=== PATIENT | female | born 1960 | race Caucasian/White ===

== ENCOUNTER → 2019-10-02 13:24 | Outpatient (CLI) | payer OTHER, SELFPAY ==
--- NOTE | ~2019-10-02 | MM_ITS ---
EXAMINATION: MM screening zohaib BI w shorty HISTORY: Screening mammogram TECHNIQUE: Craniocaudal and mediolateral oblique 3-D tomosynthesis images were obtained and synthetic 2-D images were generated. CAD analysis was submitted and interpreted. COMPARISON: No prior mammogram is available for comparison at this institution. BREAST PARENCHYMAL COMPOSITION: The breasts are heterogeneously dense, which may obscure small masses . FINDINGS: There is no evidence of suspicious mass, calcification, or architectural distortion to sugg est malignancy in either breast. There has been no suspicious interval change. IMPRESSION: 1. No mammographic evidence of malignancy. 2. Recommend routine screening mammography in one year. BI-RADS Category 1: Negative Reviewed, dictated and finalized at location A. WRAPPER MACHINE OPERATOR
--- NOTE | ~2019-10-02 | XR_ITS ---
EXAMINATION: XR wrist LT min 3V DATE: 10/02/2019 13:59 INDICATION: Increasing size of a soft mass at the ulnar side of the left wrist. TECHNIQUE: Posteroanterior, ulnar deviation, oblique, and lateral views of the left wrist were obtain ed. COMPARISON: none FINDINGS: Alignment is normal. No fracture. Joint spaces appear relatively preserved. No cortical erosions or p eriosteal reaction. On the ulnar deviated view there appears to be in mild bulge at the skin surface ulnar to the tip of the ulnar styloid process. No evident calcific matrix. IMPRESSION: Nonspecific mild bulge along the skin surface near the ulnar styloid process with the wrist in ulnar deviation with no underlying osseous abnormality. Could consider either MRI or ultrasound for further evaluation. Reviewed, dictated and finalized at location A. FLOORPERSON IMPRESSION: Nonspecific mild bulge along the skin surface near the ulnar styloid process wi th the wrist in ulnar deviation with no underlying osseous abnormality. Could c onsider either MRI or ultrasound for further evaluation.
== END ==
PROVIDERS: PCP Registered Nurse; Visit Provider Registered Nurse
DX: Z12.31 Encounter for screening mammogram for malignant neoplasm of breast (principal); M25.832 Other specified joint disorders, left wrist
CPT/HCPCS: 73110; 77063; 77067

== ENCOUNTER 2023-02-18 07:56 | Outpatient (CLI) | payer OTHER, SELFPAY ==
--- NOTE | ~2023-02-18 | US_ITS ---
EXAMINATION: US right upper quadrant DATE: 02/18/2023 08:19 INDICATION: Elevated liver enzymes TECHNIQUE: Multiple grayscale and Doppler ultrasound images of the abdomen were obtained. COMPARISON: None available FINDINGS: Bowel gas obscures visualization of the pancreas. The visualized portions of the pancreas a re unremarkable. The liver demonstrates increased echogenicity, heterogenous echotexture, and decreas ed through transmission. No surface nodularity. Normal hepatopetal flow in the main portal vein. The gallbladder is normal with no abnormal wall thickening, pericholecystic fluid or stones. The mildly d ilated common bile duct measures 7 mm. There was no sonographic De La Rosa sign. IMPRESSION: 1. Diffuse hepatic steatosis. 2. Mild dilation of the common bile duct of unclear etiology. Reviewed, dictated and finalized at location B.
== END 2023-02-18 07:57 ==
LOC: MICIMG 07:58
PROVIDERS: PCP Registered Nurse; Visit Provider Registered Nurse
DX: R74.8 Abnormal levels of other serum enzymes (principal); K76.0 Fatty (change of) liver, not elsewhere classified; K82.8 Other specified diseases of gallbladder
CPT/HCPCS: 76705

== ENCOUNTER 2023-03-10 16:40 | Outpatient (CLI) | payer OTHER, SELFPAY ==
[2023-03-10 17:34] LABS: Basophils Absolute Auto 0.1 K/mm3 (0.0-0.1); Basophils Percent Auto 2.6 % (0.2-1.2); Eosinophils Absolute Auto 0.1 K/mm3 (0-0.3); Hematocrit 31.1 % (37.0-47.0); Hemoglobin 10.9 g/dL (12.0-15.0); Immature Granulocyte Absolute 0.01 K/mm3 (0.00-0.031); Immature Granulocyte Percent A 0.2 % (0-0.5); Immature Platelet Fraction Pct 10.8 % (0.9-11.2); Lymphocytes Absolute Auto 1.07 K/mm3 (0.9-3.2); Lymphocytes Percent Auto 24.9 % (18.3-44.2); Mean Corpuscular Volume 102.6 fl (80-100); Mean Platelet Volume 11.4 fl (7.4-10.4); Monocytes Absolute Auto 0.6 K/mm3 (0.1-0.6); Monocytes Percent Auto 14.4 % (2.6-8.5); Neutrophils Absolute Auto 2.4 K/mm3 (1.3-6.7); Neutrophils Percent Auto 54.9 % (45.5-73.1); Platelet Count Result 89 k/mm3 (150-375); Red Blood Count 3.03 M/mm3 (4.2-5.4); Red Cell Distribution Width 12.7 % (11.5-14.5); White Blood Count 4.3 K/mm3 (4.5-10.0)
[2023-03-10 17:45] LABS: Alanine Aminotransferase 28 U/L (6-35); Albumin Level 5.1 g/dL (3.5-5.1); Alkaline Phosphatase 110 U/L (38-126); Anion Gap 15 mmol/L (8-16); Aspartate Amino Transferase 134 U/L (14-36); Bilirubin,Total 0.9 mg/dL (0.2-1.3); Blood Urea Nitrogen 6 mg/dL (7-17); Calcium 9.2 mg/dL (8.4-10.2); Carbon Dioxide 21 mmol/L (22-30); Chloride 93 mmol/L (98-107); Estimated Glomerular Filt Rate > 60; Glucose 90 mg/dL (65-110); Potassium 3.5 mmol/L (3.4-5.0); Sodium 129 mmol/L (137-145)
[2023-03-10 17:51] LABS: NT Pro B Type Natriuretic Pept 128 pg/mL (19.9-100)
[2023-03-10 17:54] LABS: D Dimer 1.79 ug/mL (<0.48)
[2023-03-10 17:57] LABS: Large Platelets Present; Platelet Estimate Decreased (Adequate); Schistocytes None Seen (NORMAL)
== END 2023-03-10 16:41 | disposition home or self-care (01) ==
PROVIDERS: PCP Registered Nurse; Visit Provider Student in an Organized Health Care Education/Training Program
DX: R06.02 Shortness of breath (principal)
CPT/HCPCS: 36415; 80053; 83880; 85025; 85055; 85380

== ENCOUNTER 2023-03-29 07:44 | Observation (INO) | payer OTHER, SELFPAY ==
[2023-03-29] VITALS (28 sets, daily range): BP systolic 117–137; BP diastolic 67–94; PULSE 73–96; RESP 10–22; TEMP 36.4–36.7; O2SAT 94–100; BMI 18.8
--- NOTE | ~2023-03-29 | US_ITS ---
EXAMINATION: US venous doppler [facility] DATE: 03/29/2023 16:52 INDICATION: Shortness of breath TECHNIQUE: Grayscale ultrasound images without and with compression and Doppler ultrasound images of the bilateral lower extremity veins were obtained. COMPARISON: None. FINDINGS: The visualized portions of right common femoral vein, profunda (deep) femoral vein, femoral vein, pop liteal vein, posterior tibial veins, peroneal veins, gastrocnemius vein and greater saphenous vein ou tflow are patent. The visualized portions of left common femoral vein, profunda femoral vein, femoral vein, popliteal v ein, posterior tibial veins, peroneal veins, gastrocnemius vein and greater saphenous vein outflow ar e patent. IMPRESSION: 1. No deep venous thrombosis in either lower limb. Reviewed, dictated and finalized at location A.
--- NOTE | ~2023-03-29 | XR_ITS ---
EXAMINATION: XR chest 2V DATE: 03/29/2023 08:48 INDICATION: Shortness of breath. TECHNIQUE: Frontal and lateral views of the chest were obtained. COMPARISON: None. FINDINGS: There is mild scarring at the lung apices. A calcified left lung nodule and calcified left hilar and mediastinal lymph nodes are consistent with old granulomatous disease. No pleural effusion or pneumothorax. The heart size is normal. IMPRESSION: 1. Mild scarring at the lung apices. Reviewed, dictated and finalized at location A.
--- NOTE | ~2023-03-29 | CT_ITS ---
EXAMINATION: CTA chest PE protocol DATE: 03/30/2023 08:05 INDICATION: Shortness of breath. TECHNIQUE: Computed tomography angiography (CTA) of the chest was performed with 100 mL Omnipaque-350 intravenous contrast timed to evaluate the pulmonary arteries. Coronal maximum intensity projection 3D-reconstructions were created by the technologist. Automated exposure control and iterative reconst ruction technique were employed. The dose-length product was 200.07 mGy-cm. COMPARISON: Chest 2 views 03/29/2023 FINDINGS: There is mild emphysema. There is mild scarring at the lung apices. There are groundglass o pacities in anterior segment left upper lobe. There is mild atelectasis bilaterally. A calcified left lung nodule and calcified left hilar and mediastinal lymph nodes are consistent with old granulomato us disease. The heart size is normal. No pericardial effusion. Aortic atherosclerosis is noted. There is noncalcified left hilar lymphadenopathy measuring up to 16 x 14 mm. Calcifications in the spleen are consistent with old granulomatous disease. There is diffuse hepatic steatosis. There is mild thor acic spondylosis. IMPRESSION: 1. No pulmonary embolus. 2. Groundglass opacities in anterior segment left upper lobe, consistent with mild pneumonia. 3. Mild left hilar lymphadenopathy, which may be reactive. Consider chest CT with contrast in 3 month s to exclude malignancy. 4. Mild emphysema. Reviewed, dictated and finalized at location A. IMPRESSION: 1. No pulmonary embolus. 2. Groundglass opacities in anterior segment left upper lobe, consistent with m ild pneumonia. 3. Mild left hilar lymphadenopathy, which may be reactive. Consider chest CT wi th contrast in 3 months to exclude malignancy. 4. Mild emphysema.
--- NOTE | 2023-03-29 07:52 | ECG_ITS ---
Measurements Intervals [place] Rate: 80 P: 76 TX: 205 QRS: 38 QRSD: 88 T: 70 QT: 389 QTc: 450 Interpretive Statements SINUS RHYTHM ANTEROSEPTAL MYOCARDIAL INFARCTION , OF INDETERMINATE AGE [40+ ms Q WAVE IN V1-V4] BASELINE ARTIFACT LIMITS INTERPRETATION NO PREVIOUS ECG AVAILABLE FOR COMPARISON Electronically Signed On 03-29-2023 11:22:48 CDT by Ang Dahl M.D.
[2023-03-29 08:13] LABS: Basophils Absolute Auto 0.1 K/mm3 (0.0-0.1); Basophils Percent Auto 1.9 % (0.2-1.2); Eosinophils Absolute Auto 0.2 K/mm3 (0-0.3); Eosinophils Percent Auto 5.6 % (0-4.4); Hematocrit 29.4 % (37.0-47.0); Hemoglobin 10.5 g/dL (12.0-15.0); Immature Granulocyte Absolute 0.02 K/mm3 (0.00-0.031); Immature Granulocyte Percent A 0.6 % (0-0.5); Immature Platelet Fraction Pct 12.6 % (0.9-11.2); Lymphocytes Absolute Auto 0.93 K/mm3 (0.9-3.2); Lymphocytes Percent Auto 28.9 % (18.3-44.2); Mean Corpuscular HGB Conc 35.7 g/dl (32-36); Mean Corpuscular Hemoglobin 36.7 pg (26-34); Mean Corpuscular Volume 102.8 fl (80-100); Mean Platelet Volume 10.3 fl (7.4-10.4); Monocytes Absolute Auto 0.5 K/mm3 (0.1-0.6); Monocytes Percent Auto 14.6 % (2.6-8.5); Neutrophils Absolute Auto 1.6 K/mm3 (1.3-6.7); Neutrophils Percent Auto 48.4 % (45.5-73.1); Platelet Count Result 92 k/mm3 (150-375); Red Blood Count 2.86 M/mm3 (4.2-5.4); Red Cell Distribution Width 11.9 % (11.5-14.5); White Blood Count 3.2 K/mm3 (4.5-10.0)
[2023-03-29 08:23] LABS: Alanine Aminotransferase 66 U/L (6-35); Albumin Level 4.9 g/dL (3.5-5.1); Alkaline Phosphatase 100 U/L (38-126); Anion Gap 14 mmol/L (8-16); Aspartate Amino Transferase 205 U/L (14-36); Bilirubin,Total 0.9 mg/dL (0.2-1.3); Blood Urea Nitrogen 6 mg/dL (7-17); Calcium 9.6 mg/dL (8.4-10.2); Carbon Dioxide 19 mmol/L (22-30); Chloride 87 mmol/L (98-107); Estimated CRCL calculation 63 ml/min; Estimated Glomerular Filt Rate > 60; Glucose 83 mg/dL (65-110); Potassium 3.6 mmol/L (3.4-5.0); Sodium 120 mmol/L (137-145)
[2023-03-29 08:58] LABS: D Dimer 1.87 ug/mL (<0.48)
--- NOTE | 2023-03-29 09:11 | PC.NURSE ---
Pt reports ETOH use, vodka, some time this morning prior to arrival
[2023-03-29 09:35] LABS: Ethanol 323 mg/dL (<10)
--- NOTE | 2023-03-29 10:19 | ED.GENADULT ---
HPI - General Adult General Chief complaint: Recheck/Abnormal Lab/Rx Stated complaint: abnormal labs, leg swelling Time Seen by Provider: 03/29/23 09:46 Source: patient and family Mode of arrival: ambulatory Limitations: no limitations History of Present Illness HPI narrative: 62 years old white female came to the emergency room with her daughter with funny breathing and swelling left leg. The daughter is the 1 taking care of the patient, patient is alcoholic, drinks daily, the daughter is telling me I cannot watch my mom dying in front of my eyes without doing anything. Patient declined to be treated for alcoholism and would like to continue drinking. She denies any headache, chest pain, shortness of breath, back pain. Patient does not eat enough or drink fluids enough. She denies any fever or chills or nausea or vomiting. Related Data Allergies Allergy/AdvReac Type Severity Reaction Status Date / Time azithromycin Allergy Unknown Verified 03/29/23 08:46 Review of Systems Review of Systems: All systems reviewed & are unremarkable except as noted in HPI and below Exam Narrative: General appearance: Well-developed, malnourished Skin: Normal color, scattered ecchymosis Head: Normocephalic, nontraumatic Eyes: Clear conjunctiva ENT: Oropharynx normal, ears normal, nose normal Neck: Supple, nontender Chest and respiratory: Airway patent, no respiratory distress, no accessory muscle use Heart: Regular rate/rhythm Abdomen: Soft, nontender, no organomegaly, quiet bowel sounds Vascular: Normal peripheral pulses, normal capillary refill. Musculoskeletal: Normal range of motion, nontender back, no leg swelling or tenderness Neurologic: Alert and oriented ?3, SPLITTER HEAD is normal as tested, no gross motor deficit Course Reevaluation(s) Reevaluation #1: Currently patient is asymptomatic and would like to go home Date: 03/29/23 Time: 11:33 Consultations Consultation #1: Dr. lay Date: 03/29/23 Time: 11:04 Vital Signs Vital signs: Vital Signs Temperature 36.4 C 03/29/23 07:45 Pulse Rate 82 03/29/23 07:45 Respiratory Rate 18 03/29/23 07:45 Blood Pressure 118/84 03/29/23 07:45 Pulse Oximetry 95 03/29/23 07:45 Oxygen Delivery Room Air 03/29/23 07:45 Temperature 36.4 C 03/29/23 07:45 Pulse Rate 75 03/29/23 10:40 Respiratory Rate 12 03/29/23 10:40 Blood Pressure 129/88 03/29/23 10:40 Pulse Oximetry 99 03/29/23 10:40 Oxygen Delivery Room Air 03/29/23 08:58 Medical Decision Making MDM Narrative Medical decision making narrative: Patient brought to the emergency room by her daughter who is taking care of her at home because not eating, not drinking, and losing weight over the last few weeks to months. Patient is alcoholic, drinks daily, declined to be referred to detox or stop drinking. Examination showed frail patient, awake, alert and oriented x4. Work-up today includes CBC, CMP, lipase, alcohol level, PT PTT, EKG showed leukopenia of 3.2 which high likely secondary to alcoholism, RBCs of 2.8, sodium of 120 compared to 129 on March 10. High likely secondary to hypovolemia hyponatremic or secondary to overhydration with alcohol. Patient received 800 of normal saline IV, banana bag at 100 cc/h, nephrology consult. Patient was not happy to be admitted, eventually agreed. Differential Diagnosis Differential Diagnosis: Alcoholism, dehydration, electrolyte imbalance, deep vein thrombosis, malnourished and failure to thrive Medical Records Medical records reviewed: Yes I reviewed the external patient's medical records. Vital Signs Vital Signs: Vital Signs Temperature 36.4 C 03/29/23 07:45 Pu
[2023-03-29] MEDS: SODIUM CHLORIDE 0.9% IV 1,000 ML 999 ML IV CONT (10:38)
[2023-03-29] MEDS: NICOTINE (*PBKC) 21 MG PATCH 1 PATCH TRANSDERM (10:39)
--- NOTE | 2023-03-29 11:26 | PC.NURSE ---
pt states that their last alcohol drink was at 0700 03/29
[2023-03-29 12:20] LABS: Sodium 127 mmol/L (137-145)
--- NOTE | 2023-03-29 12:46 | PM.CNNEP ---
Assessment and Plan Assessment and plan (1) Hyponatremia: Code(s): E87.1 - Hypo-osmolality and hyponatremia Status: Acute Assessment and Plan: acute on chronic baseline sodium runs ~ 129mmol/L sodium doing better with IVF hydration (arguing in favor or volume depletion) for completeness, will check urine electrolytes, TSH, cortisol, and SPEP/UPEP goal of correction is 6 - 8meq/L in 24 hours follow trend of repeat sodium levels (2) Alcoholism: Code(s): F10.20 - Alcohol dependence, uncomplicated Status: Acute Assessment and Plan: on [facility] protocol IV thiamine and oral folic acid I will continue to follow the patient with you while she remains hospitalized to make further recommendations based on her hospital course. Thank you for allowing me to participate in the care of this patient. History of Present Illness Reason for Consult Consult date: 03/29/23 Reason for consult: hyponatremia Chief Complaint Chief complaint: Alcoholic, Hyponatremia, Malnourished History of Present Illness Narrative: The patient is a 62-year-old female with a past medical history as outlined below who was brought in that the behest of her daughter due to her concerns for poor oral intake and alcohol abuse. The patient lives with her daughter and her daughter brought into the hospital due to her significant Cerner about her poor oral intake and her ongoing alcohol use. I am unclear if there any other specific concerns other than this that led to her presentation to the ER. The patient barely drinks 2-3 vodkas a day and has done so for many years. She reports no acute complaints or issues at this time is unclear why her daughter brought her to the emergency room in the 1st place. Workup and evaluation in the emergency room demonstrated the patient to be hemodynamically stable and in no apparent distress. Routine blood test did demonstrate her sodium level to be low but this apparently is a chronic issue. Her baseline sodium level runs around 129 millimoles per L and her labs in the emergency room showed a sodium of 120. However, with IV fluid it is, her sodium level is up to 127. as far as I am aware, she is not having neurological issues or problems despite this low sodium level as mentioned. Given her hyponatremia, the patient was subsequently admitted to the hospital for further evaluation and therapy. Renal consultation was requested due to her hyponatremia. As mentioned, the patient has known chronic hyponatremia at baseline with a sodium level that usually runs around 129 millimoles per L. based on her history, the assumption is that her hyponatremia is related to her significant alcohol use/ abuse and poor nutritional intake as well. She does apparently have a history of hypothyroidism and is unclear if she has active taking medications for this so if this is poorly controlled, this may be a contributing factor. As already mentioned, just with IV fluid resuscitation, her sodium level has improved arguing that volume depletion/dehydration is also playing a role as well. Currently, at the time my evaluation, she does not appear to be in acute distress. Review of Systems Review of Systems: As per HPI. [facility] Family History Family History Daughter Hyperthyroidism Sibling Hypothyroid Other Hypothyroid Mother Hypothyroid Pulmonary fibrosis Social History Social History Smoking status: Current every day smoker Tobacco type: cigarettes Alcohol intake: current Drinks per week: 14 Substance use: never Lack of Transportation: YES Lack of Food: Never True Current Housing: I Have Housing Concerned About Future Housing: No Difficulty Paying Gas/Electric Bills: No Difficulty Paying for Meds: No Currently Unemployed: No Education: Bachelor's Degree
--- NOTE | 2023-03-29 13:25 | ADMGEN ---
This patient, Billie Moreno, was admitted to [facility] Surg Room 305-02. Patient/family oriented to hospital policies and general routines including ID bracelet, bed and alarms, visiting hours, pain management, procedures, bathroom and other care routines, personal items, smoking policy, room service/diet, and visiting hours. Information on how to activate the Rapid Response Team has been discussed. Patient/Family are encouraged to report perceived risks to care and to ask questions if they do not understand what they are told or what they should do. Report from Halina in ER.
[2023-03-29 14:49] LABS: Appearance Urine Clear (Clear); Bilirubin Urine Negative (Negative); Blood Urine Negative (Negative); Color Urine Yellow (Yellow); Glucose Urine UA Negative (Negative); Ketones Urine Trace mg/dL (Negative); Leukocyte Esterase Ur Negative LEU/UL (Negative); Nitrate Urine Negative (Negative); Protein Urine Negative (Negative); Specific Grav Ur 1.003 (1.001-1.035); Urobilinogen Urine 0.2 mg/dL (<2.0); pH Urine 6.5 (5.0-9.0)
[2023-03-29 14:59] LABS: Add Urine Microscopic? NO
[2023-03-29 15:09] LABS: Creatinine Urine 10.9 mg/dL; Total Protein Urine Random 16 mg/dL; Ur Ttl Prot Creatinine Ratio 1.47 mg/mg (0-0.20)
[2023-03-29 15:19] LABS: Sodium Urine Random 25 meq/L
--- NOTE | 2023-03-29 15:22 | PC.NURSE ---
Called Dr. Valle at 1430 about pt from ER. This nurse asked the about the banana bag that is showing discontinued. told this nurse to let the infusion finish then disconnect.
--- NOTE | 2023-03-29 15:52 | PM.IMHP ---
H&P: HPI History of Present Illness Date/Time: 03/29/23 15:52 Chief Complaint: SOB Narrative: 62 years old white female came to the emergency room with her daughter with funny breathing and swelling left leg. Pt lives with her daughter and she was very worried about her not eating for days and drinking alcholol Pt states she drinks 2-3 vodkas a day. cxr today shows - ?Mild scarring at the lung apices. Sodium is 127 Pt states she has hypothyroidism but is missing her medications order TSH History is poor I will order CT PE to rule out PE and order venous dopplers to rule out DVT And cover with CIWA protocol while in the hospital. Review of Systems Review of Systems: SOB denies chest pain or palpitations Leg edema PMFSH Family History Family History Daughter Hyperthyroidism Sibling Hypothyroid Other Hypothyroid Mother Hypothyroid Pulmonary fibrosis Social History Social History Smoking status: Current every day smoker Tobacco type: cigarettes Alcohol intake: current Drinks per week: 14 Substance use: never Lack of Transportation: YES Lack of Food: Never True Current Housing: I Have Housing Concerned About Future Housing: No Difficulty Paying Gas/Electric Bills: No Difficulty Paying for Meds: No Currently Unemployed: No Education: Bachelor's Degree Difficulty w/ Childcare or Family Care: No Spiritual care concerns: No Meds Home Medications and Allergies Home Medications Medication Instructions Recorded Confirmed Type Zyrtec 1 tablet BYMOUTH DAILY 03/29/23 03/29/23 History levothyroxine 75 mcg tablet 75 mcg PO DAILY 03/29/23 03/29/23 History sertraline 25 mg tablet 25 mg PO DAILY 03/29/23 03/29/23 History Allergies Allergy/AdvReac Type Severity Reaction Status Date / Time azithromycin Allergy Diarrhea Verified 03/29/23 13:48 Vital Signs Vital Signs - 24 hr 03/29/23 07:45 03/29/23 08:58 03/29/23 09:03 Temperature 36.4 C Pulse Rate 82 80 Respiratory Rate 18 13 Blood Pressure 118/84 137/84 Pulse Oximetry 95 98 97 Oxygen Delivery Room Air Room Air 03/29/23 10:40 03/29/23 08:46 03/29/23 08:59 Temperature Pulse Rate 75 77 Respiratory Rate 12 14 13 Blood Pressure 129/88 133/94 H Pulse Oximetry 99 96 96 Oxygen Delivery 03/29/23 09:00 03/29/23 09:01 03/29/23 09:19 Temperature Pulse Rate 79 80 75 Respiratory Rate 17 12 Blood Pressure 137/84 Pulse Oximetry 99 97 97 Oxygen Delivery 03/29/23 09:31 03/29/23 09:46 03/29/23 09:47 Temperature Pulse Rate 83 76 80 Respiratory Rate 17 10 L 12 Blood Pressure 122/91 H Pulse Oximetry 96 97 95 Oxygen Delivery 03/29/23 10:04 03/29/23 10:15 03/29/23 10:31 Temperature Pulse Rate 78 95 81 Respiratory Rate 10 L 22 H 10 L Blood Pressure 129/88 Pulse Oximetry 94 97 96 Oxygen Delivery 03/29/23 10:32 03/29/23 10:45 03/29/23 11:02 Temperature Pulse Rate 83 78 82 Respiratory Rate 10 L 14 14 Blood Pressure Pulse Oximetry 96 98 96 Oxygen Delivery 03/29/23 11:25 03/29/23 11:26 03/29/23 11:31 Temperature Pulse Rate 80 77 78 Respiratory Rate 15 10 L 10 L Blood Pressure 136/84 117/76 Pulse Oximetry 98 98 98 Oxygen Delivery 03/29/23 11:39 03/29/23 11:51 03/29/23 12:05 Temperature Pulse Rate 75 76 78 Respiratory Rate 10 L 11 L 17 Blood Pressure Pulse Oximetry 98 97 100 Oxygen Delivery 03/29/23 12:17 03/29/23 12:30 03/29/23 14:00 Temperature 36.7 C Pulse Rate 80 85 73 Respiratory Rate 15 16 16 Blood Pressure 127/67 Pulse Oximetry 95 96 98 Oxygen Delivery Exam Narrative: General appearance: Well-developed, malnourished Skin: Normal color, scattered ecchymosis Head: Normocephalic, nontraumatic Eyes: Clear conjunctiva ENT: Oropharynx normal, ears normal, nose normal N
[2023-03-29 18:07] LABS: Sodium 128 mmol/L (137-145)
[2023-03-29 22:34] LABS: Sodium 127 mmol/L (137-145)
--- NOTE | 2023-03-30 | ECHO_ITS ---
Patient Info Name: Billie Moreno Age: 62 years : 1960 Gender: Female Ht: 64 in Wt: 109 lbs BSA: 1.49 m2 HR: 78 bpm BP: 124 / 72 mmHg Heart Rhythm: Sinus Rhythm Technical Quality: Fair Exam Date: 03/30/2023 9:27 AM Exam Location: [facility] Pulmonary Exam Room: [facility] Patient Status: Inpatient Admit Date: 03/29/2023 Staff Ordering Physician: Aislinn Valle MD Attending Provider: Aislinn Valle MD Referring Physician: Tori TATUM; Exam Type: CA echo doppler color flow Study Info Indications - ALCOHOLIC CARDIOMYOPATHY Complete two-dimensional, color flow and Doppler transthoracic echocardiogram is performed. Summary 1. Complete two-dimensional, color flow and Doppler transthoracic echocardiogram is performed. 2. Left ventricular chamber dimension is normal. 3. Left ventricular systolic function is normal, estimated at 65-70%. 4. The left ventricular diastolic function is grade I diastolic dysfunction. 5. Right ventricular systolic function is normal. 6. There is mild aortic valve regurgitation. Left Ventricle Left ventricular chamber dimension is normal. Left ventricular systolic function is normal, estimated at 65-70%. There is no increased left ventricular wall thickness. The left ventricular diastolic function is grade I diastolic dysfunction. Global longitudinal strain is normal at -20 %. Right Ventricle Right ventricular chamber dimension is normal. Right ventricular systolic function is normal. Left Atria Left atrial chamber dimension is normal. Right Atria Right atrial chamber dimension is normal. Atrial Septum Intact interatrial septum visualized by color flow imaging. Aortic Valve The aortic valve is not well visualized. There is no aortic valve stenosis. There is mild aortic valve regurgitation. Pulmonic Valve The pulmonic valve is not well visualized. Mitral Valve There is trace mitral valve regurgitation. Tricuspid Valve There is trace tricuspid valve regurgitation. Pericardium/Pleural There is no pericardial effusion. Inferior Vena Cava Normal inferior vena cava with >50% collapse upon inspiration consistent with normal right atrial pressure, 3 mmHg. Aorta The aortic root size at the sinus of Valsalva is normal. Left Ventricular Outflow Tract Name Value Normal LVOT 2D LVOT Diameter 2.0 cm LVOT Doppler LVOT Peak Gradient 6 mmHg LVOT Mean Gradient 3 mmHg LVOT VTI 22 cm LVOT VTI/AV VTI Ratio 0.9 LVOT Stroke Volume 69 ml LVOT CO 15.6 l/min LVOT CI 10.5 l/min/m2 Pulmonic Valve Name Value Normal PV Doppler PV Peak Gradient 3 mmHg Mitral Valve Name Value N
[2023-03-30 05:25] VITALS: BP 124/72; PULSE 84; RESP 14; TEMP 36.4; O2SAT 97
[2023-03-30] MEDS: ACETAMINOPHEN 500 MG TABLET 1000 MG PO (05:58)
[2023-03-30] MEDS: LEVOTHYROXINE SODIUM 75 MCG TABLET PO (05:58)
[2023-03-30 07:09] LABS: Anion Gap 12 mmol/L (8-16); Blood Urea Nitrogen 6 mg/dL (7-17); Calcium 9.1 mg/dL (8.4-10.2); Carbon Dioxide 21 mmol/L (22-30); Chloride 94 mmol/L (98-107); Estimated CRCL calculation 76 ml/min; Estimated Glomerular Filt Rate > 60; Glucose 85 mg/dL (65-110); Magnesium 1.3 mg/dL (1.6-2.3); Potassium 3.2 mmol/L (3.4-5.0); Sodium 127 mmol/L (137-145)
[2023-03-30] MEDS: FOLIC ACID 0.4 MG TABLET PO (08:12)
[2023-03-30 09:04] VITALS: O2SAT 97
[2023-03-30] MEDS: NICOTINE (*PBKC) 21 MG PATCH 1 PATCH TRANSDERM (13:05)
[2023-03-30 13:37] VITALS: BP 117/80; PULSE 95; RESP 16; TEMP 37; O2SAT 99
--- NOTE | 2023-03-30 14:27 | PM.IMPN ---
Progress Note: A&P Assessment and Plan (1) Alcoholism: Code(s): F10.20 - Alcohol dependence, uncomplicated Status: Acute Assessment and Plan: Pt to be placed on CIWA protocol Watch pt with librium and prn ativan Banana bag IV thiamine and oral folic acid (2) Acute hyponatremia: Code(s): E87.1 - Hypo-osmolality and hyponatremia Status: Acute Assessment and Plan: Watch sodium levels (3) At risk for malnutrition: Code(s): Z91.89 - Other specified personal risk factors, not elsewhere classified Status: Acute Assessment and Plan: Pt receiving banana bag IV thiamine and oral folic acid (4) SOB (shortness of breath): Code(s): R06.02 - Shortness of breath Status: Acute Assessment and Plan: SOB with leg edema CXR reviwed I will order echo to check or alcholic cadiomyopathy and CT pe protocol and venous doplers to rule out PE or DVT Plan Thrombocytopenia likely secondary to alcoholism Hypothyroidism Watch TSH Mild anemia watch hb levels Subjective Date/time seen: 03/30/23 14:27 Interval history: 62 years old white female came to the emergency room with her daughter with funny breathing and swelling left leg. Pt lives with her daughter and she was very worried about her not eating for days and drinking alcholol Pt states she drinks 2-3 vodkas a day. cxr today shows -??Mild scarring at the lung apices. Sodium is 127 Pt states she has hypothyroidism but is missing her medications order TSH History is poor CT PE to ruled out PE and order venous dopplers to ruled out DVT And cover with CIWA protocol while in the hospital. Await echo report Review of Systems Review of Systems: SOB denies chest pain or palpitations Leg edema Exam Narrative: General appearance: Well-developed, malnourished Skin: Normal color, scattered ecchymosis Head: Normocephalic, nontraumatic Eyes: Clear conjunctiva ENT: Oropharynx normal, ears normal, nose normal Neck: Supple, nontender Chest and respiratory: Airway patent, no respiratory distress, no accessory muscle use Heart: Regular rate/rhythm Abdomen: Soft, nontender, no organomegaly, quiet bowel sounds Vascular: Normal peripheral pulses, normal capillary refill. Musculoskeletal: Normal range of motion, nontender back, no leg swelling or tenderness Neurologic: Alert and oriented ?3, ICE HANDLER is normal as tested, no gross motor deficit Objective Data Vital Signs Vital Signs: Vital Signs - 24 hr 03/29/23 21:53 03/30/23 05:25 03/30/23 09:04 Temperature 36.6 C 36.4 C Pulse Rate 96 84 Respiratory Rate 16 14 Blood Pressure 132/71 124/72 Pulse Oximetry 96 97 97 Oxygen Delivery Room Air 03/30/23 08:00 03/30/23 13:37 Temperature 37.0 C Pulse Rate 95 Respiratory Rate 16 Blood Pressure 117/80 Pulse Oximetry 99 Oxygen Delivery Room Air Intake/Output Intake/Output: Intake & Output 03/27/23 03/28/23 03/29/23 03/30/23 23:59 23:59 23:59 23:59 Intake Total 2020 1110 Output Total 600 1200 Balance 1420 -90 Meds/Results Medications: Active Medications Generic Name Dose Route Start Last Admin Trade Name Freq PRN Reason Stop Dose Admin Chlordiazepoxide HCl 25 mg 03/29/23 16:16 Chlordiazepoxide (*Crx) 25 Mg Capsule PO Q8H PRN Anxiety Folic Acid 0.4 mg 03/30/23 09:00 03/30/23 08:12 Folic Acid 0.4 Mg Tablet PO 0.4 mg DAILY HOME Administration Levothyroxine Sodium 75 mcg 03/30/23 06:30 03/30/23 05:58 Levothyroxine Sodium 75 Mcg Tablet PO 75 mcg DAILY@0630 HOME Administration Lorazepam 0.5 mg 03/29/23 16:16 Lorazepam Inj (*Crx) 2
--- NOTE | 2023-03-30 14:35 | PM.PNNEP ---
Progress Note: A&P Assessment and Plan (1) Hyponatremia: Code(s): E87.1 - Hypo-osmolality and hyponatremia Status: Acute Assessment and Plan: acute on chronic baseline sodium runs ~ 129mmol/L sodium doing better with IVF hydration (arguing in favor of volume depletion) evaluation to date: urine electrolytes prerenal TSH and cortisol okay SPEP/UPEP pendng goal of correction is 6 - 8meq/L in 24 hours --this has been achieved follow trend of repeat sodium levels (2) Alcoholism: Code(s): F10.20 - Alcohol dependence, uncomplicated Status: Acute Assessment and Plan: on [facility] protocol IV thiamine and oral folic acid Will continue to follow. Subjective Date/time seen: 03/30/23 14:35 Interval history: Follow-up for acute on chronic hyponatremia, No apparent dsitress noted at the time of my visit; sodium is doing better with current interventions/therapy; no other issues/events overnight or earlier this morning. Exam Narrative: General: female in NAD Heart: normal S1 and S2; no rub Lungs: clear to auscultation Abdomen: soft, nontender, nondistended, positive bowel sounds Extremities: no cyanosis or clubbing; no edema Skin: warm and dry Objective Data Vital Signs Vital Signs: Vital Signs Temp Pulse Resp BP Pulse Ox O2 Del Method 03/30/23 13:37 98.6 F 95 16 117/80 99 03/30/23 08:00 Room Air 03/30/23 09:04 97 Room Air 03/30/23 05:25 97.6 F 84 14 124/72 97 03/29/23 21:53 97.8 F 96 16 132/71 96 Intake/Output Intake/Output: Intake & Output 03/27/23 03/28/23 03/29/23 03/30/23 23:59 23:59 23:59 23:59 Intake Total 2019 1350 Output Total 600 1650 Balance 1420 -300 Meds/Results Medications: Active Medications Generic Name Dose Route Start Last Admin Trade Name Freq PRN Reason Stop Dose Admin Chlordiazepoxide HCl 25 mg 03/29/23 16:16 Chlordiazepoxide (*Crx) 25 Mg Capsule PO Q8H PRN Anxiety Folic Acid 0.4 mg 03/30/23 09:00 03/30/23 08:12 Folic Acid 0.4 Mg Tablet PO 0.4 mg DAILY HOME Administration Levothyroxine Sodium 75 mcg 03/30/23 06:30 03/30/23 05:58 Levothyroxine Sodium 75 Mcg Tablet PO 75 mcg DAILY@0630 HOME Administration Lorazepam 0.5 mg 03/29/23 16:16 Lorazepam Inj (*Crx) 2 Mg/Ml Vial IV PUSH Q6H PRN Anxiety Nicotine 1 patch 03/30/23 10:50 03/30/23 13:05 Nicotine (*Pbkc) 21 Mg Patch TRANSDERM 1 patch QAM HOME Administration Ondansetron HCl 4 mg 03/29/23 11:24 Ondansetron Inj 4 Mg/2 Ml Vial IV PUSH Q4H PRN Nausea Perflutren Lipid Microsphere 0 ml 03/29/23 16:16 Perflutren Lipid Microspheres 1.5 Ml Vial Diluted To 10 Ml Total Volume IV PUSH 03/31/23 16:17 ONCE PRN adequate visualization Protocol Potassium Chloride 20 meq 03/31/23 09:00 Potassium Chloride 20 Meq Packet (For Liquid) PO DAILY [facility] Thiamine HCl 100 mg 03/31/23 09:00 Thiamine Hcl 100 Mg Tablet PO QAM [facility] Radiology Results: ITS Impressions Chest X-Ray 03/29/23 08:54 IMPRESSION: 1. Mild scarring at the lung apices. Venous Doppler Study 03/29/23 17:39 IMPRESSION: 1. No deep venous thrombosis in either lower limb. Chest CTA 03/30/23 08:08 IMPRESSION: 1. No pulmonary embolus. 2. Groundglass opacities in anterior segment left upper lobe, consistent with mild pneumonia. 3. Mild left hilar lymphadenopathy, which may be reactive. Consider chest CT with contrast in 3 months to exclude malignancy. 4. Mild emphysema. Labs Labs: Laboratory Tests 03/29/23 08:05 03/30/23 06:30 Sodium 127 L Potassium 3.2 L Chloride 94 L Carbon Dioxide 21 L Anion Gap 12 BUN 6 L Creatinine 0.50 L Estim Creat Clear Calc 76 Estimated GFR > 60 Glucose 85 Calcium 9.1 Magnesium 1.3 L
[2023-03-30 15:09] VITALS: BMI 18.8
[2023-03-30 16:41] LABS: Sodium 129 mmol/L (137-145)
[2023-03-30 16:42] LABS: Anion Gap 13 mmol/L (8-16); Blood Urea Nitrogen 9 mg/dL (7-17); Calcium 9.3 mg/dL (8.4-10.2); Carbon Dioxide 23 mmol/L (22-30); Chloride 93 mmol/L (98-107); Estimated CRCL calculation 76 ml/min; Estimated Glomerular Filt Rate > 60; Glucose 144 mg/dL (65-110)
--- NOTE | 2023-03-30 18:50 | PC.NURSE ---
If patient were to discharge tomorrow, daughter Lalita Moreno wants staff to notify Taylor Chin (sister) [phone] for any discharge needs/transportation. Lalita Moreno will be unavailable to take calls tomorrow.
[2023-03-30 21:43] VITALS: BP 133/86; PULSE 87; RESP 13; TEMP 37.2; O2SAT 98
[2023-03-31 05:35] VITALS: BP 141/84; PULSE 96; RESP 13; TEMP 37.1; O2SAT 98
[2023-03-31] MEDS: LEVOTHYROXINE SODIUM 75 MCG TABLET PO (05:48)
[2023-03-31 08:01] LABS: Albumin Level 4.6 g/dL (3.5-5.1); Anion Gap 6 mmol/L (8-16); Blood Urea Nitrogen 6 mg/dL (7-17); Calcium 9.3 mg/dL (8.4-10.2); Carbon Dioxide 25 mmol/L (22-30); Chloride 92 mmol/L (98-107); Estimated CRCL calculation 76 ml/min; Estimated Glomerular Filt Rate > 60; Glucose 90 mg/dL (65-110); Magnesium 1.1 mg/dL (1.6-2.3); Phosphorus 2.7 mg/dL (2.5-4.5); Potassium 3.1 mmol/L (3.4-5.0); Sodium 123 mmol/L (137-145)
[2023-03-31] MEDS: FOLIC ACID 0.4 MG TABLET PO (08:27)
[2023-03-31] MEDS: POTASSIUM CHLORIDE 20 MEQ PACKET (FOR LIQUID) PO (08:27)
[2023-03-31] MEDS: THIAMINE HCL 100 MG TABLET PO (08:27)
[2023-03-31] MEDS: NICOTINE (*PBKC) 21 MG PATCH 1 PATCH TRANSDERM (08:27)
[2023-03-31] MEDS: MAGNESIUM SULF 2 GM/WATER 50ML 2 GM/50 ML BAG IVPB (09:47)
[2023-03-31] MEDS: chlordiazePOXIDE (*CRX) 25 MG CAPSULE PO (09:50)
--- NOTE | 2023-03-31 13:42 | PM.DS ---
DS: Admitting Diagnosis Discharge Date 03/31/2023 Admitting Diagnosis SOB DS: Discharge Diagnosis Discharge Diagnosis (1) Alcoholism: Code(s): F10.20 - Alcohol dependence, uncomplicated Status: Acute Assessment and Plan: Pt to be placed on CIWA protocol Pt treated with Banana bag IV thiamine and oral folic acid change to oral supplements Dc with librium PRN alcholol withdrawl (2) Acute hyponatremia: Code(s): E87.1 - Hypo-osmolality and hyponatremia Status: Acute Assessment and Plan: Watch sodium levels chronic problem secondary to alcholism Pt seen by nephrology today had mg infusion (3) At risk for malnutrition: Code(s): Z91.89 - Other specified personal risk factors, not elsewhere classified Status: Acute Assessment and Plan: Pt receiving banana bag IV thiamine and oral folic acid (4) SOB (shortness of breath): Code(s): R06.02 - Shortness of breath Status: Acute Assessment and Plan: SOB with leg edema CXR reviwed Echo negative EF 60% and CT pe protocol and venous doplers ruled out out PE or DVT Plan Thrombocytopenia likely secondary to alcoholism Hypothyroidism continue back on thyroid medications Mild anemia watch hb levels DS: Summary Hospital Course Hospital Course: 62 years old white female came to the emergency room with her daughter with funny breathing and swelling left leg. Pt lives with her daughter and she was very worried about her not eating for days and drinking alcohol Pt states she drinks 2-3 vodkas a day. cxr today shows -??Mild scarring at the lung apices. Sodium is 127 Pt states she has hypothyroidism but is missing her medications order TSH History is poor I will order CT PE to rule out PE and order venous dopplers to rule out DVT And cover with CIWA protocol while in the hospital. Echo and CT PE were good pt felt better okto DC today Time Spent with Patient Time attestation: Total time spent providing and/or coordinating discharge services:48 minutes on day of DC Exam Narrative: General appearance: Well-developed, malnourished Skin: Normal color, scattered ecchymosis Head: Normocephalic, nontraumatic Eyes: Clear conjunctiva ENT: Oropharynx normal, ears normal, nose normal Neck: Supple, nontender Chest and respiratory: Airway patent, no respiratory distress, no accessory muscle use Heart: Regular rate/rhythm Abdomen: Soft, nontender, no organomegaly, quiet bowel sounds Vascular: Normal peripheral pulses, normal capillary refill. Musculoskeletal: Normal range of motion, nontender back, no leg swelling or tenderness Neurologic: Alert and oriented ?3, GAME TRAPPER is normal as tested, no gross motor deficit DS: Data Data Completed and Pending Labs on day of discharge: Labs from last 24 hours 03/31/23 03/30/23 07:27 16:11 Sodium 123 L 129 L Potassium 3.1 L 3.0 L Chloride 92 L 93 L Carbon Dioxide 25 23 Anion Gap 6 L 13 BUN 6 L 9 Creatinine 0.50 L 0.50 L Estim Creat Clear Calc 76 76 Estimated GFR > 60 > 60 Glucose 90 144 H Calcium 9.3 9.3 Phosphorus 2.7 Magnesium 1.1 L Albumin 4.6 Discharge Plan Discharge Attending physician on discharge: Aislinn Valle Consulting providers: Bryan Lagunas Discharging Clinician: Aislinn Valle Anticipated Discharge Date/Time: 03/31/23 13:27 Patient Disposition: Home, Self-Care Activity: as tolerated Diet: as tolerated Patient Instructions: Antibiotic Form, How to Stop Smoking (DC) Stand Alone Forms: General Discharge Information Follow-up/Referrals: UNKNOWN,DOCTOR [Non-Staff] - Dischar
[2023-04-02 15:06] LABS: Kappa\\Lambda Light Chains 0.95 (0.26-1.65); Lambda Light Chain 26.5 mg/L (5.7-26.3)
[2023-04-02 18:25] LABS: Albumin 4.8 g/dL (3.8-4.8); Alpha 1 Globulin 0.3 g/dL (0.2-0.3); Alpha 2 Globulin 0.6 g/dL (0.5-0.9); Beta 1 Globulin 0.5 g/dL (0.4-0.6); Gamma Globulin 1.2 g/dL (0.8-1.7); Protein, Total 7.6 g/dL (6.1-8.1)
[2023-04-05 02:35] LABS: Creatinine, Random Urine 11 mg/dL (20-275); Total Protein/Creatinine Ratio 364 mg/g creat (24-184)
== END 2023-03-31 13:50 | disposition home or self-care (01) ==
LOC: ANHED 11:42 → ANH3MEDSUR 12:18
PROVIDERS: Internal Medicine Nephrology; Admitting Provider Family Medicine; Emergency Provider Emergency Medicine; PCP Anesthesiology; Visit Provider Family Medicine
DX: F10.229 Alcohol dependence with intoxication, unspecified (principal); Y90.8 Blood alcohol level of 240 mg/100 ml or more; E87.1 Hypo-osmolality and hyponatremia; Z91.89 Other specified personal risk factors, not elsewhere classified; E46 Unspecified protein-calorie malnutrition; R62.7 Adult failure to thrive; Z68.1 Body mass index [BMI] 19.9 or less, adult; R06.02 Shortness of breath; R60.0 Localized edema; I35.1 Nonrheumatic aortic (valve) insufficiency; R59.1 Generalized enlarged lymph nodes; R91.8 Other nonspecific abnormal finding of lung field; J43.9 Emphysema, unspecified; F17.210 Nicotine dependence, cigarettes, uncomplicated; Z79.899 Other long term (current) drug therapy
CPT/HCPCS: 36415; 71046; 71275; 80048; 80053; 80069; 80307; 81003; 81050; 82533; 82570; 83735; 83883; 84155; 84156; 84165; 84166; 84295; 84300; 84443; 85025; 85055; 85380; 93005; 93306; 93970; 96361; 96365; 96374; 99285; A9270; G0378; J3411; J3475; J7030; Q9967